=== PATIENT | male | born 1930 | race Caucasian/White ===

== ENCOUNTER 2017-03-11 14:02 | Inpatient (IN) | payer BC ==
[2017-03-11 15:03] VITALS: BMI 27.9
--- NOTE | 2017-03-11 15:13 | PDOC ---
History of Present Illness - General History Source: Patient, Old Records Exam Limitations: No Limitations - History of Present Illness Initial Comments: 03/11/17 15:34 The patient is a 86 year old male presenting with his sister, with a significant past medical history of HTN and HLD, who presents to the emergency department with left upper extremity erythema for the past 4-5 days. He states that moving his arm is uncomfortable but is able to have full range of motion. He reports that he does garden but did not notice anything on his shoulder and did not feel any bug bites. He notes that he feels as if the erythematous area has been improving. The patient denies chest pain, shortness of breath, headache and dizziness. Denies fever, chills, nausea, vomit, diarrhea and constipation. Allergies: None Past surgical history: Abdominal surgery Social history: Alcohol use. No tobacco or drug use reported PMD - Dr. Nasir De Leon <Carlos Enrique Landin - Last Filed: 03/11/17 15:31> <Aristides Dumont - Last Filed: 03/11/17 17:10> - General Chief Complaint: Redness To Affected Area Stated Complaint: RASH Time Seen by Provider: 03/11/17 15:11 Past History <Carlos Enrique Landin - Last Filed: 03/11/17 15:31> - Past Medical History Anemia: No Asthma: No Cancer: No Cardiac Disorders: No CVA: No COPD: No CHF: No Dementia: No Diabetes: No GI Disorders: No Disorders: No HTN: Yes Hypercholesterolemia: Yes Liver Disease: No Seizures: No Thyroid Disease: No - Surgical History Abdominal Surgery: Yes (ABD) Appendectomy: No Cardiac Surgery: No Cholecystectomy: No Lung Surgery: No Neurologic Surgery: No Orthopedic Surgery: No - Psycho/Social/Smoking Cessation Hx Anxiety: No Suicidal Ideation: No Smoking History: Never smoked Have you smoked in the past 12 months: No Information on smoking cessation initiated: No Hx Alcohol Use: No Drug/Substance Use Hx: No Substance Use Type: Alcohol Hx Substance Use Treatment: No <Aristides Dumont - Last Filed: 03/11/17 17:10> - Past Medical History Allergies/Adverse Reactions: Allergies Allergy/AdvReac Type Severity Reaction Status Date / Time No Known Drug Allergies Allergy Verified 03/11/17 14:16 Home Medications: Ambulatory Orders Lisinopril [Prinivil -] 10 mg PO DAILY 01/03/15 Simvastatin [Zocor -] 20 mg PO HS 01/03/15 Review of Systems - Review of Systems Constitutional: Yes: Chills. No: Fever Respiratory: No: Cough, Shortness of Breath Cardiac (ROS): No: Chest Pain ABD/GI: No: Diarrhea, Vomiting Musculoskeletal: Yes: See HPI Integumentary: Yes: See HPI All Other Systems: Reviewed and Negative <Aristides Dumont - Last Filed: 03/11/17 17:10> *Physical Exam - Vital Signs Last Vital Signs Temp Pulse Resp BP Pulse Ox 99.0 F 64 18 112/53 96 03/11/17 14:17 03/11/17 14:17 03/11/17 14:17 03/11/17 14:17 03/11/17 14:17 - Physical Exam Comments: 03/11/17 15:31 GENERAL: The patient is awake, alert, and fully oriented, in no acute distress. HEAD: Normal with no signs of trauma. EYES: Pupils equal, round and reactive to light, extraocular movements intact, sclera anicteric, conjunctiva clear with no pallor. ENT: Ears normal, nares patent, oropharynx clear without exudates. Moist mucous membranes. NECK: Normal range of motion, supple without lymphadenopathy, JVD, or masses. LUNGS: Breath sounds equal, clear to auscultation bilaterally. No wheeze/ crackles. HEART: (+) Regular bradycardia, normal S1 and S2 without murmur or rub. ABDOMEN: Soft/nontender/nondistended. BS wnl. No guarding or rebound. No palpable masses. No hepatosplenomegaly. EXTREMITIES: Normal range of motion, no edema. No clubbing or cyanosis. No cords , erythema, or tenderness. NEUROLOGICAL: Cranial nerves II through XII grossly intact. Normal speech, normal gait. PSYCH: Normal mood, normal affect. SKIN: (+) Central indurated area in the central area of the left shoulder, slight target lesion with peripheral area of pallor and blanching erythema overall 10 cm in diameter, no joint effusion, neurovascularly intact, full range of motion <Carlos Enrique Landin - Last Filed: 03/11/17 15:31> - Vital Signs Last Vital Signs Temp Pulse Resp BP Pulse Ox 99.0 F 64 18 112/53 96 03/11/17 14:17 03/11/17 14:17 03/11/17 14:17 03/11/17 14:17 03/11/17 14:17 <Aristides Dumont - Last Filed: 03/11/17 17:10> Medical Decision Making - Critical Care Time Total Critical Care Time (minutes): 45 Critical Care Statement: The care of this patient involved high complexity decision making to prevent further life threatening deterioration of the patient 's condition and/or to evalute & treat vital organ system(s) failure or risk of failure. - Medical Decision Making 03/11/17 15:58 Patient seen and evaluated with the nurse practitioner. I agree with the overall evaluation, assessment, and management with the following summary of visit: 86y/o M HTN and high cholesterol p/w rash and discomfort to L shoulder. Sxs for about 1 week, unclear as patient was not closely monitoring. ? insect bite, increasing discomfort to the L shoulder but maintains FROM. increasing redness so presents for evaluation. chills but no fever. no montoya/confusion. VS as noted, bradycardic L shoulder with target rash and central induration, no FB/insect noted, no pus/ bleeding. No axillary LAD, no joint effusion and FROM nvi regular malika on exam, otherwise normal 86-year-old male with erythema migrans rash to left shoulder, possible centrals superimposed cellulitis. Possible Lyme. Given the bradycardia, could be concerning for cardiac involvement. No evidence of neurological involvement. No evidence of septic joint. Sepsis protocol initiated Lyme titers sent EKG was performed and shows bradycardia with block, ? variable 1st degree versus Wenchebach given varying WA intervals. 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 Will treat with recommended Ceftriaxone 2g IV and will need cardiac monitoring. Cardiology Dr. Uribe consulted. 03/11/17 17:09 D/W Dr. Soares, will see pt. Agrees with tele admission. Accepted for inpatient telemetry by Dr. Pike, admitting for Dr. De Leon. Labs pending, receiving abx. Signout given to oncoming ED physician to f/u the labs, reassess the patient, and proceed with admission. <Aristides Dumont - Last Filed: 03/11/17 17:10> *DC/Admit/Observation/Transfer - Attestations Scribe Attestion: 03/11/17 15:31 Documentation prepared by Carlos Enrique Landin, acting as medical equipment technician for Aristides Dumont MD <Carlos Enrique Landin - Last Filed: 03/11/17 15:31> - Discharge Dispostion Admit: Yes <Aristides Dumont - Last Filed: 03/11/17 17:10> Diagnosis at time of Disposition: Erythema migrans (Lyme disease), Mobitz (type) I (Wenckebach's) atrioventricular block, Lyme carditis - Discharge Dispostion Condition at time of disposition: Fair - Referrals Referrals: Nasir De Leon MD [Primary Care Provider] -
[2017-03-11] MEDS ORDERED: DOXYCYCLINE INJECTION 100 MG in DEXTROSE 5%-WATER - 100 ML IVPB ONE (15:31)
[2017-03-11] MEDS ORDERED: CEFTRIAXONE 2 GM in DEXTROSE 5%-WATER - 100 ML IVPB ONE (16:11)
[2017-03-11] MEDS ORDERED: ACETAMINOPHEN 325 MG TABLET (FP) PO PRN (17:10)
[2017-03-11 17:21] LABS: BASOPHIL 0.7 % (0-2.0); EOSINOPHIL 0.7 % (0-4.5); MCH 32.1 pg (25.7-33.7); MCHC 33.4 g/dl (32.0-35.9); MEAN CELL VOLUME 96.1 fl (80-96); MEAN PLT VOLUME 10.5 fl (7.5-11.1); NEUTROPHILS 63.6 % (42.8-82.8); PLATELET COUNT 100 K/MM3 (134-434); RDW 12.6 % (11.9-15.9)
[2017-03-11 17:38] LABS: INR 1.14 (0.82-1.09); PROTHROMBIN TIME (PATIENT) 12.6 SEC (9.98-11.88)
[2017-03-11 17:41] LABS: ACTIVATED PTT 28.5 SECONDS (26.9-34.4)
[2017-03-11 18:07] LABS: ALBUMIN 3.4 g/dl (3.4-5.0); ANION GAP 9 (8-16); CALCIUM 8.3 mg/dL (8.5-10.1); CO2 25 mmol/L (21-32); GLUCOSE,RANDOM 98 mg/dL (74-106)
[2017-03-11 18:13] LABS: ALK PHOS 56 U/L (45-117); BILIRUBIN,TOTAL 0.7 mg/dL (0.2-1.0); CREATININE 0.8 mg/dL (0.7-1.3); SGOT/AST 74 U/L (15-37); SGPT/ALT 65 U/L (12-78); TOT PROT 6.6 g/dl (6.4-8.2); TROPONIN I < 0.02 ng/ml (0.00-0.05)
[2017-03-11] MEDS: ATORVASTATIN CA 10 MG TABLET (FP) PO SCH (22:59)
--- NOTE | 2017-03-12 01:56 | CON.CARD ---
Consult Consult Specialty:: cardiology Reason for Consultation:: bradycardia - History of Present Illness History of Present Illness: The patient is an 86 year old male presenting with his sister, with a significant past medical history of HTN and HLD, who presents to the emergency department with left upper extremity erythema for the past 4-5 days. He states that moving his arm is uncomfortable but is able to have full range of motion. He reports that he does garden but did not notice anything on his shoulder and did not feel any bug bites. He notes that he feels as if the erythematous area has been improving. The patient denies chest pain, shortness of breath, headache and dizziness. Denies fever, chills, nausea, vomit, diarrhea and constipation. Allergies: None Past surgical history: Abdominal surgery Social history: Alcohol use. No tobacco or drug use reported PMD - Dr. Nasir De Leon - History Source History Provided By: Medical Record Limitations to Obtaining History: No Limitations - Past Medical History Cardio/Vascular: Yes: HTN, Hyperlipdemia - Past Surgical History Past Surgical History: Yes: Hernia Repair (left inquinal: 2014) - Alcohol/Substance Use Hx Alcohol Use: No - Smoking History Smoking history: Never smoked Have you smoked in the past 12 months: No Home Medications - Allergies Allergies/Adverse Reactions: Allergies Allergy/AdvReac Type Severity Reaction Status Date / Time No Known Drug Allergies Allergy Verified 03/11/17 14:16 - Home Medications Home Medications: Ambulatory Orders Lisinopril [Prinivil -] 10 mg PO DAILY 01/03/15 Simvastatin [Zocor -] 20 mg PO HS 01/03/15 - Risk Factors Known Risk Factors: Yes: Age, Hypercholesterolemia, Hypertension Vital Signs: Vital Signs Temperature 99.0 F 03/11/17 18:48 Pulse Rate 42 L 03/11/17 18:48 Respiratory Rate 20 03/11/17 18:48 Blood Pressure 103/49 03/11/17 18:48 O2 Sat by Pulse Oximetry (%) 98 03/11/17 21:00 - Other Data Labs, Other Data: INR, PTT INR 1.14 (0.82-1.09) 03/11/17 16:46 Imaging - Results Chest X-ray: Image Reviewed EKG: Image Reviewed (Marked sinus bradycardia) Problem List - Problems (1) Erythema migrans (Lyme disease) Code(s): A69.20 - LYME DISEASE, UNSPECIFIED (2) Lyme carditis Code(s): A69.29 - OTHER CONDITIONS ASSOCIATED WITH LYME DISEASE I51.89 - OTHER ILL-DEFINED HEART DISEASES (3) Mobitz (type) I (Wenckebach's) atrioventricular block Assessment/Plan: Suspect Lyme disease (in garden recently; now with erythema migrans rash) as cause of marked bradycardia, 2nd degree AV block Mobitz Type I. Started on Ceftriazone empirically. R/o thyroid disease: f/u TFTs. TNI < 0.02; f/u serially. Not on home AV conduction blockers. Pt denies dizziness/syncope/chest pain/dyspnea/LE edema. F/u on telemetry; serial EKGs. ECHO for LVEF, wall motion, valve status. Code(s): I44.1 - ATRIOVENTRICULAR BLOCK, SECOND DEGREE (4) HTN (hypertension) Assessment/Plan: on lisinopril. ECHO for LVEF, chamber sizes; wall thickness/motion; valve status. Code(s): I10 - ESSENTIAL (PRIMARY) HYPERTENSION (5) Hyperlipidemia Assessment/Plan: on statin; f/u lipids; mildly elevated AST. Code(s): E78.5 - HYPERLIPIDEMIA, UNSPECIFIED
[2017-03-12 07:29] LABS: MCH 32.1 pg (25.7-33.7); MCHC 33.8 g/dl (32.0-35.9); MEAN PLT VOLUME 9.5 fl (7.5-11.1); PLATELET COUNT 87 K/MM3 (134-434); RDW 12.7 % (11.9-15.9); WHITE BLOOD COUNT 5.3 K/mm3 (4.0-10.0)
[2017-03-12 08:25] LABS: ALBUMIN 2.9 g/dl (3.4-5.0); ALK PHOS 47 U/L (45-117); ANION GAP 8 (8-16); BILIRUBIN,TOTAL 0.6 mg/dL (0.2-1.0); CO2 27 mmol/L (21-32); CREATININE 0.7 mg/dL (0.7-1.3); GLUCOSE,RANDOM 116 mg/dL (74-106); SGOT/AST 52 U/L (15-37); SGPT/ALT 52 U/L (12-78); TOT PROT 5.7 g/dl (6.4-8.2)
[2017-03-12 09:46] LABS: THYROID STIMULATING HORMONE 1.47 uIU/ml (0.358-3.74)
[2017-03-12] MEDS ORDERED: CEFTRIAXONE 2G/100 ML IVPB SCH (10:00)
[2017-03-12] MEDS ORDERED: LISINOPRIL 10 MG TABLET (FP) PO SCH (10:00)
--- NOTE | 2017-03-12 10:06 | HP ---
Admitting History and Physical - Primary Care Physician PCP: Nasir De Leon (\) - Admission Chief Complaint: rash and heart block History of Present Illness: 86 yrs old male came to ER for rash on left shoulder-- he told his sister that he wasn't feeling well yesterday and she came over and discovered this rash on left shoulder No fever or chills but says that he has been feeling fatigued for the last few days. Finds it difficult to do routine activities.Has been feeling dizzy in the mornings for several months now. He attributes this taking Lisinopril. He denies seeing deer ticks, denies deers near his home. He gardens , went to the nearby park recently No chest pain or SOB Spoke with Dr De Leon his PCP-- had done a physical on the pt last month and EKG - Genoveva type 1 - HR 48 Last year EKG- 50 , he has been progressively getting bradycardic. He did a holter on the pt this year last month and lowest HR was 36. History Source: Patient Limitations to Obtaining History: No Limitations - Past Medical History Cardiovascular: Yes: HTN, Hyperlipdemia - Past Surgical History Past Surgical History: Yes: Hernia Repair (left inquinal: 2014) - Smoking History Smoking history: Never smoked Have you smoked in the past 12 months: No - Alcohol/Substance Use Hx Alcohol Use: No Home Medications - Allergies Allergies/Adverse Reactions: Allergies Allergy/AdvReac Type Severity Reaction Status Date / Time No Known Drug Allergies Allergy Verified 03/11/17 14:16 - Home Medications Home Medications: Ambulatory Orders Lisinopril [Prinivil -] 10 mg PO DAILY 01/03/15 Simvastatin [Zocor -] 20 mg PO HS 01/03/15 Review of Systems - Review of Systems Constitutional: reports: Weakness. denies: Chills, Fever, Loss of Appetite Cardiovascular: denies: Chest Pain, Edema, Palpitations, Shortness of Breath Integumentary: reports: Rash Physical Examination Vital Signs: Vital Signs Temperature 98.8 F 03/12/17 02:08 Pulse Rate 60 03/12/17 02:08 Respiratory Rate 20 03/12/17 02:08 Blood Pressure 104/59 03/12/17 02:08 O2 Sat by Pulse Oximetry (%) 98 03/11/17 21:00 Constitutional: Yes: No Distress, Calm Cardiovascular: Yes: Regular Rate and Rhythm Respiratory: Yes: CTA Bilaterally Gastrointestinal: Yes: Normal Bowel Sounds, Soft. No: Distention, Tenderness Edema: No Integumentary: Yes: Rash (left shoulder-- erythema migrans) Neurological: Yes: Alert, Oriented Labs: CBC, BMP 03/12/17 05:45 03/12/17 05:45 Imaging - Results Chest X-ray: Image Reviewed EKG: Image Reviewed (1 degree AV block, Mobitz 1) Problem List - Problems (1) Erythema migrans (Lyme disease) Code(s): A69.20 - LYME DISEASE, UNSPECIFIED (2) HTN (hypertension) Code(s): I10 - ESSENTIAL (PRIMARY) HYPERTENSION (3) Lyme carditis Code(s): A69.29 - OTHER CONDITIONS ASSOCIATED WITH LYME DISEASE I51.89 - OTHER ILL-DEFINED HEART DISEASES (4) Mobitz (type) I (Wenckebach's) atrioventricular block Code(s): I44.1 - ATRIOVENTRICULAR BLOCK, SECOND DEGREE Assessment/Plan PLAN On IV Ceftriaxone Spoke with PMD and ID Add Doxycycline per ID Labs pending regarding Lyme continue with home meds Pt has been having bradycardia for about 2 years now Platelets low -- check Ehrlichia DVT prophylaxis -- SCD
--- NOTE | 2017-03-12 10:25 | PN ---
Progress Note, Physician History of Present Illness: The patient is an 86 year old male presenting with his sister, with a significant past medical history of HTN and HLD, who presents to the emergency department with left upper extremity erythema for the past 4-5 days. He states that moving his arm is uncomfortable but is able to have full range of motion. He reports that he does garden but did not notice anything on his shoulder and did not feel any bug bites. He notes that he feels as if the erythematous area has been improving. The patient denies chest pain, shortness of breath, headache and dizziness. Denies fever, chills, nausea, vomit, diarrhea and constipation. Allergies: None Past surgical history: Abdominal surgery Social history: Alcohol use. No tobacco or drug use reported PMD - Dr. Nasir De Leon - Current Medication List Current Medications: Active Medications Acetaminophen (Tylenol -) 650 mg PO Q6H PRN PRN Reason: FEVER Atorvastatin Calcium (Lipitor -) 10 mg PO HS [facility] Last Admin: 03/11/17 22:59 Dose: 10 mg Ceftriaxone Sodium (Rocephin 2gm Ivpb (Pre-Docked)) 100 mls @ 200 mls/hr IVPB DAILY [facility] Last Admin: 03/12/17 09:31 Dose: 200 mls/hr Lisinopril (Prinivil) 10 mg PO DAILY [facility] Last Admin: 03/12/17 09:32 Dose: Not Given - Objective Vital Signs: Vital Signs Temperature 98.8 F 03/12/17 02:08 Pulse Rate 60 03/12/17 02:08 Respiratory Rate 20 03/12/17 02:08 Blood Pressure 104/59 03/12/17 02:08 O2 Sat by Pulse Oximetry (%) 98 03/11/17 21:00 Eyes: Yes: WNL, Conjunctiva Clear, EOM Intact HENT: Yes: WNL, Atraumatic, Normocephalic Neck: Yes: WNL, Supple, Trachea Midline Cardiovascular: Yes: WNL, Regular Rate and Rhythm Respiratory: Yes: WNL, Regular, CTA Bilaterally Gastrointestinal: Yes: WNL, Normal Bowel Sounds Genitourinary: Yes: WNL Musculoskeletal: Yes: WNL Extremities: Yes: WNL Edema: No Integumentary: Yes: WNL Neurological: Yes: WNL, Alert, Oriented ...Motor Strength: WNL Psychiatric: Yes: WNL Labs: CBC, BMP 03/12/17 05:45 03/12/17 05:45 INR, PTT INR 1.14 (0.82-1.09) 03/11/17 16:46 Assessment/Plan - Problems (1) Erythema migrans (Lyme disease) Code(s): A69.20 - LYME DISEASE, UNSPECIFIED (2) Lyme carditis Code(s): A69.29 - OTHER CONDITIONS ASSOCIATED WITH LYME DISEASE I51.89 - OTHER ILL-DEFINED HEART DISEASES (3) Mobitz (type) I (Wenckebach's) atrioventricular block Assessment/Plan: Suspect Lyme disease (in garden recently; now with erythema migrans rash) as cause of marked bradycardia, 2nd degree AV block Mobitz Type I. Started on Ceftriazone empirically. R/o thyroid disease: f/u TFTs. TNI < 0.02; f/u serially. Not on home AV conduction blockers. Pt denies dizziness/syncope/chest pain/dyspnea/LE edema. F/u on telemetry; serial EKGs. ECHO for LVEF, wall motion, valve status. Code(s): I44.1 - ATRIOVENTRICULAR BLOCK, SECOND DEGREE (4) HTN (hypertension) Assessment/Plan: on lisinopril. ECHO for LVEF, chamber sizes; wall thickness/motion; valve status. Code(s): I10 - ESSENTIAL (PRIMARY) HYPERTENSION (5) Hyperlipidemia Assessment/Plan: on statin; f/u lipids; mildly elevated AST. Code(s): E78.5 - HYPERLIPIDEMIA, UNSPECIFIED
[2017-03-12] MEDS: D5W IVPB SCH (11:15)
[2017-03-12] MEDS: CEFTRIAXONE 2 GM/100 ML IVPB SCH (11:15)
--- NOTE | 2017-03-12 11:19 | PN ---
Progress Note (short form) - Note Progress Note: ID consult dictated imp/reccd- 86 year old man admitted with rash on shoulder, his sister saw the rash yesterday and tole him he had a target lesion he was noted to have be bradycardic and had an ekg that showed mobitz type ! heart block he was started on ceftriaxone and admitted to telemetry no fevers lives in a house in [place] does gardening denies tick bites no travel no pets erythema migrans c/w lyme disease r/o lyme carditis r/o coinfection with anaplasma,babesia, ehrlichia- serology ordered- patient with thrombocytopenia rocephin/doxy for now with plans for po doxy when ready for discharge to complete 28 days d/w PMD Problem List - Problems (1) Erythema migrans (Lyme disease) Code(s): A69.20 - LYME DISEASE, UNSPECIFIED (2) Lyme carditis Code(s): A69.29 - OTHER CONDITIONS ASSOCIATED WITH LYME DISEASE I51.89 - OTHER ILL-DEFINED HEART DISEASES (3) Thrombocytopenia Code(s): D69.6 - THROMBOCYTOPENIA, UNSPECIFIED
--- NOTE | 2017-03-12 12:01 | CONS ---
DATE OF CONSULTATION: DATE OF DICTATION: 03/12/2017 INFECTIOUS DISEASE CONSULTATION REQUESTING PHYSICIAN: Kena Negrete MD HISTORY OF PRESENT ILLNESS: This is an 86-year-old man. He lives alone in a house here in [place]. He presented to the emergency room yesterday with erythema and a rash on his left shoulder. He says his shoulder was itchy. He showed the rash to his sister who told him he had a target lesion and that he should get evaluated and he came to the emergency room. He denies any fevers and chills. He denies any tick bites. He denies any travel. He has no pets. He does live here in [place]. He gardens and has a nice vegetable garden. He does report fatigue. He has had no fevers or chills. He reports he has been dizzy in the morning. In the emergency room he was noted to be bradycardic. He had an EKG done and was found to have a first-degree A-V block Mobitz type 1. I am asked to see him for further management. PAST MEDICAL HISTORY: Notable for hypertension and hyperlipidemia. PAST SURGICAL HISTORY: Notable for a left inguinal hernia repair in 2014. FAMILY HISTORY: Noncontributory. SOCIAL HISTORY: There is no history of any substance use. He lives alone. ALLERGIES: He has no known drug allergies. MEDICATIONS: His medications as an outpatient include Prinivil and Zocor. REVIEW OF SYSTEMS: He denies fevers, chills, nausea, vomiting, diarrhea, or dysuria. He has not noted rash elsewhere on his body. He does not have any swollen joints. PHYSICAL EXAMINATION: Vital Signs: T-max of 99 and currently 98, pulse of 55, blood pressure of 115/62, and respiratory rate of 18. HEENT: He is normocephalic. His eyes are anicteric. There are no conjunctival hemorrhages. Neck: Supple. Lungs: Clear to auscultation. Heart: Regular rate and rhythm. Abdomen: Soft and nontender. Extremities: Without edema. He has no joint swelling. He has on his left shoulder a large target lesion, which is warm to touch. LABORATORY DATA: Notable for a white count of 5.3, hemoglobin of 12.8, and platelets yesterday were 100,000 and this morning is 87,000. Sedimentation rate is 30. INR is 1. AST of 52 and ALT of 52 with an alkaline phosphatase of 47. His CRP is 7.8. His Lyme serology is pending. Chest x-ray was done in the emergency room and shows minimal blunting of the left costophrenic angle with some mild atelectasis. SUMMARY: This is an 86-year-old man with erythema migrans consistent with Lyme disease. Rule out Lyme carditis given the Mobitz type 1 heart block. Rule out co-infection with anaplasma, Babesia, and ehrlichia. The patient does have thrombocytopenia, which makes it possible that he has co-infection with anaplasma. Would use ceftriaxone and doxycycline at this time. Would plan for oral doxycycline when ready for discharge to complete 28 days. The case was discussed at length with his PMD, Dr. Negrete. CORINNA DANIELSON M.D. [id number]
[2017-03-12] MEDS: DOXYCYCLINE INJECTION 100 MG in DEXTROSE 5%-WATER - 100 ML IVPB SCH ×2 (12:59→22:47)
--- NOTE | 2017-03-12 13:37 | EKG ---
Test Reason : Blood Pressure : / mmHG Vent. Rate : 046 BPM Atrial Rate : 046 BPM P-R Int : 330 ms QRS Dur : 088 ms QT Int : 448 ms P-R-T Axes : 073 005 019 degrees QTc Int : 392 ms SINUS BRADYCARDIA WITH MOBITZ I (WENCKEBACH) BLOCK OTHERWISE NORMAL ECG WHEN COMPARED WITH ECG OF 10-SEP-2002 09:14, PREMATURE ATRIAL COMPLEXES ARE NOW PRESENT VENT. RATE HAS DECREASED BY 23 BPM Confirmed by PILAR PRABHAKAR MD ([id number]) on 03/12/2017 1:36:31 PM Referred By: Confirmed By:PILAR PRABHAKAR MD
[2017-03-12] MEDS ORDERED: PT OWN MED DRAWER 7, Y5N ONE (22:46)
[2017-03-12] MEDS: ATORVASTATIN CA 10 MG TABLET (FP) PO SCH (22:47)
[2017-03-13 07:24] LABS: BASOPHIL 0.3 % (0-2.0); EOSINOPHIL 3.4 % (0-4.5); MCH 32.7 pg (25.7-33.7); MCHC 33.8 g/dl (32.0-35.9); MEAN CELL VOLUME 96.6 fl (80-96); MEAN PLT VOLUME 9.7 fl (7.5-11.1); NEUTROPHILS 54.8 % (42.8-82.8); PLATELET COUNT 100 K/MM3 (134-434); RDW 12.4 % (11.9-15.9); WHITE BLOOD COUNT 4.8 K/mm3 (4.0-10.0)
[2017-03-13] MEDS: DOXYCYCLINE INJECTION 100 MG in DEXTROSE 5%-WATER - 100 ML IVPB SCH (09:09)
[2017-03-13] MEDS: D5W IVPB SCH (09:09)
[2017-03-13] MEDS: CEFTRIAXONE 2 GM/100 ML IVPB SCH (09:09)
--- NOTE | 2017-03-13 10:53 | PN ---
Progress Note, Physician Chief Complaint: was diaphoretic this AM not dizzy has h/o dizziness in the past No chest pain no pain or pruritus - left shoulder rash - Current Medication List Current Medications: Active Medications Acetaminophen (Tylenol -) 650 mg PO Q6H PRN PRN Reason: FEVER Atorvastatin Calcium (Lipitor -) 10 mg PO HS [facility] Last Admin: 03/12/17 22:47 Dose: 10 mg Ceftriaxone Sodium (Rocephin 2gm Ivpb (Pre-Docked)) 100 mls @ 200 mls/hr IVPB DAILY [facility] Last Admin: 03/13/17 09:09 Dose: 200 mls/hr Doxycycline Hyclate 100 mg/ (Dextrose) 100 mls @ 100 mls/hr IVPB BID [facility] Last Admin: 03/13/17 09:09 Dose: 100 mls/hr - Objective Vital Signs: Vital Signs Temperature 98 F 03/13/17 06:00 Pulse Rate 46 L 03/13/17 06:00 Respiratory Rate 20 03/13/17 06:00 Blood Pressure 126/64 03/13/17 06:00 O2 Sat by Pulse Oximetry (%) 99 03/12/17 21:00 Constitutional: Yes: No Distress, Calm Cardiovascular: Yes: Regular Rate and Rhythm, Bradycardia Respiratory: Yes: CTA Bilaterally Gastrointestinal: Yes: Normal Bowel Sounds, Soft. No: Distention, Tenderness Extremities: Yes: Other (left shoulder bull's eye rash-- disappearing) Edema: No Psychiatric: Yes: Alert, Oriented Labs: CBC, BMP 03/13/17 06:00 03/12/17 05:45 INR, PTT INR 1.14 (0.82-1.09) 03/11/17 16:46 Problem List - Problems (1) Erythema migrans (Lyme disease) Code(s): A69.20 - LYME DISEASE, UNSPECIFIED (2) HTN (hypertension) Code(s): I10 - ESSENTIAL (PRIMARY) HYPERTENSION (3) Lyme carditis Code(s): A69.29 - OTHER CONDITIONS ASSOCIATED WITH LYME DISEASE I51.89 - OTHER ILL-DEFINED HEART DISEASES (4) Mobitz (type) I (Wenckebach's) atrioventricular block Code(s): I44.1 - ATRIOVENTRICULAR BLOCK, SECOND DEGREE Assessment/Plan PLAN On IV Ceftriaxone and PO Doxycycline per ID Labs pending regarding Lyme, Ehrlichia , Babesia continue with home meds Pt has been having bradycardia for about 2 years now Platelets increasing will get Holter results from PMD spoke with Photograph Editor today-- consult configuration specialist for possible PPM DVT prophylaxis -- SCD
--- NOTE | 2017-03-13 12:57 | PN ---
Progress Note, Physician Chief Complaint: ID Ceftriaxone doxycycline Feels well - Current Medication List Current Medications: Active Medications Acetaminophen (Tylenol -) 650 mg PO Q6H PRN PRN Reason: FEVER Atorvastatin Calcium (Lipitor -) 10 mg PO HS [facility] Last Admin: 03/12/17 22:47 Dose: 10 mg Ceftriaxone Sodium (Rocephin 2gm Ivpb (Pre-Docked)) 100 mls @ 200 mls/hr IVPB DAILY [facility] Last Admin: 03/13/17 09:09 Dose: 200 mls/hr Doxycycline Hyclate 100 mg/ (Dextrose) 100 mls @ 100 mls/hr IVPB BID [facility] Last Admin: 03/13/17 09:09 Dose: 100 mls/hr - Objective Vital Signs: Vital Signs Temperature 99 F 03/13/17 10:00 Pulse Rate 56 L 03/13/17 10:00 Respiratory Rate 18 03/13/17 10:00 Blood Pressure 129/74 03/13/17 10:00 O2 Sat by Pulse Oximetry (%) 98 03/13/17 09:00 Constitutional: Yes: Well Nourished, No Distress Neck: Yes: WNL, Supple Cardiovascular: Yes: Regular Rate and Rhythm, Rub, S1, S2 Respiratory: Yes: WNL, CTA Bilaterally Gastrointestinal: Yes: WNL, Normal Bowel Sounds, Soft. No: Tenderness, Tenderness, Rebound Wound/Incision: Yes: Other (Em rash left shoulder) Labs: CBC, BMP 03/13/17 06:00 03/12/17 05:45 INR, PTT INR 1.14 (0.82-1.09) 03/11/17 16:46 Assessment/Plan Microbiology 03/13/17 10:01 Blood - Peripheral Venous Blood Parasites Smear (FELIPE) - Final 03/12/17 11:45 Serum HGE Ehrlichia (PCR) - Preliminary 03/12/17 11:45 Serum Ehrlichia Serology - Preliminary 03/11/17 16:46 Blood - Peripheral Venous Blood Culture - Preliminary NO GROWTH OBTAINED AFTER 24 HOURS, INCUBATION TO CONTINUE FOR 4 DAYS. Laboratory Tests 03/11/17 03/12/17 03/12/17 16:46 05:45 11:45 WBC Hgb Hct Plt Count ALT 52 A. phagocytophilum DNA Pending Babesia microti DNA PCR Lyme Disease IgG/IgM Pending 03/12/17 03/13/17 11:45 06:00 WBC 4.8 Hgb 13.2 Hct 39.0 Plt Count 100 L ALT A. phagocytophilum DNA Babesia microti DNA PCR Pending Lyme Disease IgG/IgM Assessment Borrelia infection rash Possible coinfection HGA Lyme heart block considered Plan Rash improving Continue antibiotics Blade MATT
--- NOTE | 2017-03-13 14:25 | CON.CARD ---
Consult Consult Specialty:: EPS Referred by:: Dr. Uribe Reason for Consultation:: Mobitz I - History of Present Illness Chief Complaint: Bradycardia History of Present Illness: Mr. Mccloud is a pleasant 86 year old male with a pmh of hypertension, inc chol , bradycardia who presented to the ER with complaints of erythema on his LUE. He was noted to be bradycardic with mobitz I heart block. He was noted to have complaints of dizziness and consultation was requested for possible pacemaker placement. The patient was seen and evaluated. He denies any chest pain, dyspnea, palpitations, near or true syncope at this time. He denies any significant dizziness in the past but states that he has had dyspnea when he "over-exerts" himself. He reportedly had a holter monitor done a few years ago that demonstrated bradycardia with a heart rate in the 30's but strips are not available for review at this time. TFT's are wnl. A lyme titer was sent but results are pending. - History Source History Provided By: Patient, Family Member - Past Medical History Cardio/Vascular: Yes: HTN, Hyperlipdemia - Past Surgical History Past Surgical History: Yes: Hernia Repair (left inquinal: 2014) - Alcohol/Substance Use Hx Alcohol Use: No - Smoking History Smoking history: Never smoked Have you smoked in the past 12 months: No Home Medications - Allergies Allergies/Adverse Reactions: Allergies Allergy/AdvReac Type Severity Reaction Status Date / Time No Known Drug Allergies Allergy Verified 03/11/17 14:16 - Home Medications Home Medications: Ambulatory Orders Lisinopril [Prinivil -] 10 mg PO DAILY 01/03/15 Simvastatin [Zocor -] 20 mg PO HS 01/03/15 Family Disease History - Family Disease History Family History: Unremarkable Review of Systems - Review of Systems Constitutional: denies: Chills, Fever HENT: denies: Epistaxis, Nasal Congestion Neck: denies: Tenderness Cardiovascular: denies: Chest Pain, Edema, Palpitations Respiratory: denies: Hemoptysis Gastrointestinal: denies: Abdominal Pain, Nausea, Vomiting Genitourinary: denies: Dysuria, Hematuria Musculoskeletal: denies: Muscle Weakness Neurological: reports: No Symptoms Vital Signs: Vital Signs Temperature 99 F 03/13/17 10:00 Pulse Rate 56 L 03/13/17 10:00 Respiratory Rate 18 03/13/17 10:00 Blood Pressure 129/74 03/13/17 10:00 O2 Sat by Pulse Oximetry (%) 98 03/13/17 09:00 Constitutional: Yes: Well Nourished Eyes: Yes: WNL HENT: Yes: WNL Neck: Yes: WNL Respiratory: Yes: WNL Gastrointestinal: Yes: WNL, Normal Bowel Sounds, Soft Cardiovascular: Yes: WNL, Regular Rate and Rhythm JVD: No Heart Sounds: Yes: S1, S2 Musculoskeletal: Yes: WNL Extremities: Yes: WNL Edema: No Peripheral Pulses WNL: Yes Integumentary: Yes: Rash Neurological: Yes: WNL ...Motor Strength: WNL Psychiatric: Yes: WNL, Alert, Oriented - Other Data Labs, Other Data: CBC, BMP 03/13/17 06:00 03/12/17 05:45 INR, PTT INR 1.14 (0.82-1.09) 03/11/17 16:46 Echo: Report Reviewed Ejection Fraction %: LVEF > or = 40 % Imaging - Results X-ray: Report Reviewed EKG: Image Reviewed Problem List - Problems (1) Mobitz (type) I (Wenckebach's) atrioventricular block Code(s): I44.1 - ATRIOVENTRICULAR BLOCK, SECOND DEGREE (2) HTN (hypertension) Code(s): I10 - ESSENTIAL (PRIMARY) HYPERTENSION Assessment/Plan 03/13/2017: JVD EPS: mobitz I heart block, asymptomatic. narrow complex rhythm. no evidence of high degree heart block on review of telemetry monitoring. normal LV systolic function with moderate . pt with dyspnea on exertion which may be secondary to chronotropic incompetence in this patient with long-standing bradycardia vs aortic valve disease vs other etiology such as deconditioning. reportedly had a holter a few years ago with rates in the 30's, not available for review at this time. denies near or true syncope. no indication for ppm therapy at this time. tft's wnl. - f/u labwork previously sent - keep k 4-4.5, mg 2-2.5 - can d/c telemetry - no indication for ppm therapy at this time - outpt stress test to evaluate for chronotropic incompetence. - review prior holter - consider outpt event monitor to evaluate for asymptomatic high degree av block - care as per cardiology, primary services Thank you for allowing me to participate in the care of this patient. Please call with any questions. Edgard Palomino MD [phone]
--- NOTE | 2017-03-13 15:22 | PN ---
Progress Note, Physician Chief Complaint: Pt A&Ox3; no chest pain, dizziness, or dyspnea. History of Present Illness: The patient is an 86 year old white male presenting with his sister, with a significant past medical history of HTN and HLD, who presents to the emergency department with left upper extremity erythema for the past 4-5 days. He states that moving his arm is uncomfortable but is able to have full range of motion. He reports that he does garden but did not notice anything on his shoulder and did not feel any bug bites. He notes that he feels as if the erythematous area has been improving. The patient denies chest pain, shortness of breath, headache and dizziness. Denies fever, chills, nausea, vomit, diarrhea and constipation. Allergies: None Past surgical history: Abdominal surgery Social history: Alcohol use. No tobacco or drug use reported PMD - Dr. Nasir De Leon - Current Medication List Current Medications: Active Medications Acetaminophen (Tylenol -) 650 mg PO Q6H PRN PRN Reason: FEVER Atorvastatin Calcium (Lipitor -) 10 mg PO HS [facility] Last Admin: 03/12/17 22:47 Dose: 10 mg Doxycycline Hyclate (Vibramycin -) 100 mg PO BID@1000,1800 [facility] Ceftriaxone Sodium (Rocephin 2gm Ivpb (Pre-Docked)) 100 mls @ 200 mls/hr IVPB DAILY [facility] Last Admin: 03/13/17 09:09 Dose: 200 mls/hr - Objective Vital Signs: Vital Signs Temperature 98.1 F 03/13/17 14:00 Pulse Rate 56 L 03/13/17 14:00 Respiratory Rate 20 03/13/17 14:00 Blood Pressure 119/60 03/13/17 14:00 O2 Sat by Pulse Oximetry (%) 98 03/13/17 09:00 Constitutional: Yes: No Distress Eyes: Yes: WNL HENT: Yes: WNL Neck: Yes: WNL Cardiovascular: Yes: S1 (varies in intensity), S2 Respiratory: Yes: WNL Gastrointestinal: Yes: Soft ...Rectal Exam: Yes: Deferred Genitourinary: Yes: WNL Breast(s): Yes: WNL Musculoskeletal: Yes: WNL Extremities: Yes: WNL Edema: No Peripheral Pulses WNL: Yes Integumentary: Yes: Erythema (left UE) Neurological: Yes: Alert, Oriented Psychiatric: Yes: WNL Labs: CBC, BMP 03/13/17 06:00 03/12/17 05:45 INR, PTT INR 1.14 (0.82-1.09) 03/11/17 16:46 Problem List - Problems (1) Erythema migrans (Lyme disease) Assessment/Plan: f/u with infectious disease MD Code(s): A69.20 - LYME DISEASE, UNSPECIFIED (2) Lyme carditis Code(s): A69.29 - OTHER CONDITIONS ASSOCIATED WITH LYME DISEASE I51.89 - OTHER ILL-DEFINED HEART DISEASES (3) Mobitz (type) I (Wenckebach's) atrioventricular block Assessment/Plan: TSH WNL. As discussed with Dr. Kena Pike, pt has been worked up in the past few years for similar EKG findings. A Holter reportedly showed HR in the 30s bpm at one point; it is uncertain,e.g., if this was while he was asleep. Pt denies chest pain, syncope, or marked dyspnea, but has exertional fatigue. As discussed with Dr. Palomino, EP, pt would benefit from a stress treadmill test for evaluation of HR/rhythm response to exercise and to r/o chronotropic incompetence. He is essentially asymptomatic, and has narrow-complex QRS pattern presently. F/u results of prior Holter; further long-term monitoring may be done as outpt if required by symptoms. Code(s): I44.1 - ATRIOVENTRICULAR BLOCK, SECOND DEGREE (4) HTN (hypertension) Assessment/Plan: on lisinopril. ECHO: normal LVEF; mildly dilated LA. Code(s): I10 - ESSENTIAL (PRIMARY) HYPERTENSION (5) Hyperlipidemia Assessment/Plan: on statin; f/u lipids; mildly elevated AST. Code(s): E78.5 - HYPERLIPIDEMIA, UNSPECIFIED
[2017-03-13] MEDS: DOXYCYCLINE HYCLATE 100 MG CAPSULE PO SCH (17:11)
[2017-03-13] MEDS: ATORVASTATIN CA 10 MG TABLET (FP) PO SCH (21:41)
[2017-03-14 08:08] LABS: MCH 32.3 pg (25.7-33.7); MCHC 33.9 g/dl (32.0-35.9); MEAN CELL VOLUME 95.3 fl (80-96); MEAN PLT VOLUME 9.8 fl (7.5-11.1); PLATELET COUNT 123 K/MM3 (134-434); RDW 12.4 % (11.9-15.9); WHITE BLOOD COUNT 4.6 K/mm3 (4.0-10.0)
--- NOTE | 2017-03-14 08:40 | PN ---
Progress Note (short form) - Note Progress Note: SUBJECTIVE: Patient seen and examined by me. Chart reviewed. Sitting in chair. Comfortable. Patient reports redness on the left arm getting better. OBJECTIVE: Vital Signs - 8 hr 03/14/17 03/14/17 03/14/17 02:27 06:00 08:45 Temperature 98.3 F 97.5 F L Pulse Rate 59 L 48 L Respiratory 20 20 20 Rate Blood Pressure 113/68 119/62 O2 Sat by Pulse 98 Oximetry (%) 03/14/17 08:52 Temperature 97.6 F Pulse Rate 60 Respiratory 20 Rate Blood Pressure 121/76 O2 Sat by Pulse Oximetry (%) Intake & Output 03/13/17 03/14/17 03/14/17 23:59 07:59 15:59 Intake Total 660 310 Balance 660 310 Intake: IV 10 10 SALINE 10 10 Oral 650 300 Other: Voiding Method Toilet Toilet Toilet # Unmeasured Voids Void 2 Bowel Movement Yes Yes Active Medications Acetaminophen (Tylenol -) 650 mg PO Q6H PRN PRN Reason: FEVER Atorvastatin Calcium (Lipitor -) 10 mg PO HS [facility] Last Admin: 03/13/17 21:41 Dose: 10 mg Doxycycline Hyclate (Vibramycin -) 100 mg PO BID@1000,1800 [facility] Last Admin: 03/14/17 10:11 Dose: 100 mg Ceftriaxone Sodium (Rocephin 2gm Ivpb (Pre-Docked)) 100 mls @ 200 mls/hr IVPB DAILY [facility] Last Admin: 03/14/17 10:11 Dose: 200 mls/hr CBC, BMP 03/14/17 06:00 03/12/17 05:45 Laboratory Results - last 24 hr 03/11/17 03/13/17 03/14/17 16:46 15:35 06:00 WBC 4.6 RBC 3.95 L Hgb 12.8 Hct 37.6 MCV 95.3 MCHC 33.9 RDW 12.4 Plt Count 123 L D MPV 9.8 Hemoglobin A1c % 5.7 Lyme Disease IgG/IgM < 0.91 Microbiology 03/11/17 16:46 Blood Culture - Preliminary Blood - Peripheral Venous NO GROWTH OBTAINED AFTER 48 HOURS, INCUBATION TO CONTINUE FOR 3 DAYS. 03/11/17 16:30 Blood Culture - Preliminary Blood - Peripheral Venous NO GROWTH OBTAINED AFTER 48 HOURS, INCUBATION TO CONTINUE FOR 3 DAYS. 03/13/17 10:01 Blood Parasites Smear (FELIPE) - Final Blood - Peripheral Venous PHYSICAL EXAMINATION: Constitutional: Yes: No Distress, Calm Cardiovascular: Yes: Regular Rate and Rhythm, Bradycardia Respiratory: Yes: CTA Bilaterally Gastrointestinal: Yes: Normal Bowel Sounds, Soft. No: Distention, Tenderness Extremities: Yes: Other (left shoulder bull's eye rash--better) Edema: No Psychiatric: Yes: Alert, Oriented ASSESSMENT & PLAN: - Stable. - Continue antibiotics. - Follow up Lyme titers. - Will follow. Documentation prepared by Milvia Fenton, acting as a medical lab technologist for Miri Evans MD
--- NOTE | 2017-03-14 09:45 | PN ---
Progress Note, Physician Chief Complaint: Pt OOB in chair; no chest pain or dyspnea. History of Present Illness: The patient is an 86 year old white male presenting with his sister, with a significant past medical history of HTN and HLD, who presents to the emergency department with left upper extremity erythema for the past 4-5 days. He states that moving his arm is uncomfortable but is able to have full range of motion. He reports that he does garden but did not notice anything on his shoulder and did not feel any bug bites. He notes that he feels as if the erythematous area has been improving. The patient denies chest pain, shortness of breath, headache and dizziness. Denies fever, chills, nausea, vomit, diarrhea and constipation. Allergies: None Past surgical history: Abdominal surgery Social history: Alcohol use. No tobacco or drug use reported PMD - Dr. Nasir De Leon - Current Medication List Current Medications: Active Medications Acetaminophen (Tylenol -) 650 mg PO Q6H PRN PRN Reason: FEVER Atorvastatin Calcium (Lipitor -) 10 mg PO HS [facility] Last Admin: 03/13/17 21:41 Dose: 10 mg Doxycycline Hyclate (Vibramycin -) 100 mg PO BID@1000,1800 [facility] Last Admin: 03/13/17 17:11 Dose: 100 mg Ceftriaxone Sodium (Rocephin 2gm Ivpb (Pre-Docked)) 100 mls @ 200 mls/hr IVPB DAILY [facility] Last Admin: 03/13/17 09:09 Dose: 200 mls/hr - Objective Vital Signs: Vital Signs Temperature 97.6 F 03/14/17 08:52 Pulse Rate 60 03/14/17 08:52 Respiratory Rate 20 03/14/17 08:52 Blood Pressure 121/76 03/14/17 08:52 O2 Sat by Pulse Oximetry (%) 98 03/14/17 08:45 Constitutional: Yes: No Distress Eyes: Yes: WNL HENT: Yes: WNL Neck: Yes: WNL Cardiovascular: Yes: Bradycardia, Pulse Irregular Respiratory: Yes: WNL Gastrointestinal: Yes: WNL ...Rectal Exam: Yes: Deferred Genitourinary: No: Anuria Breast(s): Yes: WNL Musculoskeletal: Yes: WNL Extremities: Yes: WNL Edema: No Peripheral Pulses WNL: Yes Integumentary: Yes: WNL Neurological: Yes: WNL ...Motor Strength: WNL Psychiatric: Yes: WNL Labs: CBC, BMP 03/14/17 06:00 03/12/17 05:45 INR, PTT INR 1.14 (0.82-1.09) 03/11/17 16:46 - ....Imaging Other: Image Reviewed (telemetry: 2nd degree Mobitz Type I; VR in 40s bpm at rest.) Problem List - Problems (1) Erythema migrans (Lyme disease) Assessment/Plan: discussed case with Dr. Card. Code(s): A69.20 - LYME DISEASE, UNSPECIFIED (2) Lyme carditis Code(s): A69.29 - OTHER CONDITIONS ASSOCIATED WITH LYME DISEASE I51.89 - OTHER ILL-DEFINED HEART DISEASES (3) Mobitz (type) I (Wenckebach's) atrioventricular block Assessment/Plan: TSH WNL. As discussed with Dr. Kena Pike, pt has been worked up in the past few years for similar EKG findings. A Holter reportedly showed HR in the 30s bpm at one point; it is uncertain,e.g., if this was while he was asleep. Pt denies chest pain, syncope, or marked dyspnea, but has exertional fatigue. As discussed with Dr. Palomino, EP, pt would benefit from a stress treadmill test for evaluation of HR/rhythm response to exercise and to r/o chronotropic incompetence.This will be done today. He is essentially asymptomatic, and has narrow-complex QRS pattern presently. F/u results of prior Holter; further long-term monitoring may be done as outpt if required by symptoms. Code(s): I44.1 - ATRIOVENTRICULAR BLOCK, SECOND DEGREE (4) HTN (hypertension) Assessment/Plan: on lisinopril. ECHO: normal LVEF; mildly dilated LA. Code(s): I10 - ESSENTIAL (PRIMARY) HYPERTENSION (5) Hyperlipidemia Assessment/Plan: on statin; f/u lipids; mildly elevated AST. Code(s): E78.5 - HYPERLIPIDEMIA, UNSPECIFIED
[2017-03-14] MEDS: D5W IVPB SCH (10:11)
[2017-03-14] MEDS: CEFTRIAXONE 2 GM/100 ML IVPB SCH (10:11)
[2017-03-14] MEDS: DOXYCYCLINE HYCLATE 100 MG CAPSULE PO SCH ×2 (10:11→17:13)
--- NOTE | 2017-03-14 11:33 | PN ---
Progress Note (short form) - Note Progress Note: for stress test today Vital Signs Period Temp Pulse Resp BP Sys/Saini Pulse Ox Last 24 Hr 97.5 F-98.3 F 48-60 20-20 113-160/60-76 98-98 cor-rrr lungs clear abd soft,nt rash on shoulder is fading CBC, BMP 03/14/17 06:00 03/12/17 05:45 Microbiology 03/11/17 16:46 Blood - Peripheral Venous Blood Culture - Preliminary NO GROWTH OBTAINED AFTER 48 HOURS, INCUBATION TO CONTINUE FOR 3 DAYS. 03/11/17 16:30 Blood - Peripheral Venous Blood Culture - Preliminary NO GROWTH OBTAINED AFTER 48 HOURS, INCUBATION TO CONTINUE FOR 3 DAYS. 03/13/17 10:01 Blood - Peripheral Venous Blood Parasites Smear (FELIPE) - Final 03/12/17 11:45 Serum HGE Ehrlichia (PCR) - Preliminary 03/12/17 11:45 Serum Ehrlichia Serology - Preliminary a/p erythema migrans c/w lyme disease r/o lyme carditis-d/w Dr Monroy who feels his bradycardia predated this episode (was present on holter last year)-making lyme carditis less likely r/o coinfection with anaplasma,babesia, ehrlichia- serology ordered- patient with thrombocytopenia-improving rocephin/doxy for now with plans for po doxy when ready for discharge to complete 28 day-would discharge when cleared by cardiology platelets are recovering and he is afebrile, can f/u serologies as outpatient Problem List - Problems (1) Erythema migrans (Lyme disease) Code(s): A69.20 - LYME DISEASE, UNSPECIFIED (2) Lyme carditis Code(s): A69.29 - OTHER CONDITIONS ASSOCIATED WITH LYME DISEASE I51.89 - OTHER ILL-DEFINED HEART DISEASES (3) Thrombocytopenia Code(s): D69.6 - THROMBOCYTOPENIA, UNSPECIFIED
--- NOTE | 2017-03-14 13:24 | TRE ---
Protocol Name : TRAVON Max Work Load (METS*10) : 68 Time In Exercise Phase : 00:07:37 Max. Systolic BP : 160 mmHg Max Diastolic BP : 70 mmHg Max Heart Rate : 110 BPM Max Predicted Heart Rate : 135 BPM Attending Physician : HAKAN LAZO Reason for Test : 2ND DEGREE MOBITZ 1 Stress Protocol : TRAVON Rest HR : 61 BPM PeakEx METs : 1.0 METS Recovery ECG Response (OLD) : Diagnosis : The patient completed 7:37 of a Manual Travon Protocol achieving 7METS. The resting heart rate of 50bpm jaci to a peak of 112bpm representing 82% of age predicted maximal heart rate. The resting blood pressure of 140/70 jaci to maximum of 160/70. The test was stopped due to shortness of breath. The resting ECG showed Sinus bradycardia with Type I, 2nd degree AV block (Wenkebach). [place] stress, several short self limited runs of NSVT (longest 3 beats) were noted. 1mm horizontal ST depressions in V4-V6 at peak stress. Conclusion: +/abnormal ETT as outlined above. Chronotropically competent, achieving 7 METS with 82% of age predicted maximal heart rate achieved. Confirmed by HAKAN LAZO MD ([id number]) on 03/14/2017 1:23:35 PM
[2017-03-14] MEDS: ATORVASTATIN CA 10 MG TABLET (FP) PO SCH (21:25)
[2017-03-15] MEDS ORDERED: PT OWN MED DRAWER 7, Y5N ONE (09:46)
[2017-03-15] MEDS: DOXYCYCLINE HYCLATE 100 MG CAPSULE PO SCH (09:54)
[2017-03-15 10:40] VITALS: BP 123/67; PULSE 57; TEMP 98
--- NOTE | 2017-03-15 12:56 | DS ---
Physical Examination Vital Signs: Vital Signs Temperature 98.0 F 03/15/17 10:00 Pulse Rate 57 L 03/15/17 10:00 Respiratory Rate 16 03/15/17 10:00 Blood Pressure 123/67 03/15/17 10:00 O2 Sat by Pulse Oximetry (%) 98 03/15/17 09:00 Findings/Remarks: pt seen/ examined feels well no complains wants to go home denies pain Constitutional: Yes: No Distress, Calm Neck: Yes: Supple Cardiovascular: Yes: Regular Rate and Rhythm Respiratory: Yes: CTA Bilaterally Gastrointestinal: Yes: Normal Bowel Sounds, Soft Extremities: Yes: Erythema (lue-- much better) Edema: No Labs: CBC, BMP 03/14/17 06:00 03/12/17 05:45 Discharge Summary Reason For Visit: TLINGIT & [facility]IDA CARDITIS Current Active Problems Erythema migrans (Lyme disease) (Acute) HTN (hypertension) (Acute) Hyperlipidemia (Acute) Lyme carditis (Acute) Mobitz (type) I (Wenckebach's) atrioventricular block (Acute) Thrombocytopenia (Acute) Hospital Course: admitted for lue- erythema concern for lyme also has bradycardia (pt has malika before this event ) treated with abx cardiology/ i/d followed stress test -ve discussed with both i/d as well as cardiology-- stable for d/c will d/c on po abx -- total 28 days f/u serology as out pt pt strongly advised to follow with his pmd in one week also f/u with cardiology as advised pt in agreement time spend in d/c planning/ documenting, coordating care and examining -- 35 min discussed with nursing staff also. Condition: Improved - Instructions Referrals: Nasir De Leon MD [Primary Care Provider] - Disposition: HOME - Home Medications Comprehensive Discharge Medication List: Ambulatory Orders Lisinopril [Prinivil] 10 mg PO DAILY 01/03/15 Simvastatin [Zocor -] 20 mg PO HS 01/03/15 Acetaminophen [Tylenol .Regular Strength -] 650 mg PO Q6H PRN #0 tablet Doxycycline Hyclate [Vibramycin -] 100 mg PO BID@1000,1800 #50 tab 03/15/17
--- NOTE | 2017-03-15 14:33 | PN ---
Progress Note, Physician Chief Complaint: Pt A&Ox3; asymptomatic. History of Present Illness: The patient is an 86 year old white male presenting with his sister, with a significant past medical history of HTN and HLD, who presents to the emergency department with left upper extremity erythema for the past 4-5 days. He states that moving his arm is uncomfortable but is able to have full range of motion. He reports that he does garden but did not notice anything on his shoulder and did not feel any bug bites. He notes that he feels as if the erythematous area has been improving. The patient denies chest pain, shortness of breath, headache and dizziness. Denies fever, chills, nausea, vomit, diarrhea and constipation. Allergies: None Past surgical history: Abdominal surgery Social history: Alcohol use. No tobacco or drug use reported PMD - Dr. Nasir De Leon - Current Medication List Current Medications: Active Medications Acetaminophen (Tylenol -) 650 mg PO Q6H PRN PRN Reason: FEVER Atorvastatin Calcium (Lipitor -) 10 mg PO HS [facility] Last Admin: 03/14/17 21:25 Dose: 10 mg Doxycycline Hyclate (Vibramycin -) 100 mg PO BID@1000,1800 [facility] Last Admin: 03/15/17 09:54 Dose: 100 mg Ceftriaxone Sodium (Rocephin 2gm Ivpb (Pre-Docked)) 100 mls @ 200 mls/hr IVPB DAILY [facility] Last Admin: 03/14/17 10:11 Dose: 200 mls/hr - Objective Vital Signs: Vital Signs Temperature 98.0 F 03/15/17 10:00 Pulse Rate 57 L 03/15/17 10:00 Respiratory Rate 16 03/15/17 10:00 Blood Pressure 123/67 03/15/17 10:00 O2 Sat by Pulse Oximetry (%) 98 03/15/17 09:00 Constitutional: Yes: No Distress Eyes: Yes: WNL HENT: Yes: WNL Neck: Yes: WNL Cardiovascular: Yes: Bradycardia, Pulse Irregular Respiratory: Yes: WNL Gastrointestinal: Yes: WNL ...Rectal Exam: Yes: Deferred Genitourinary: No: Anuria Breast(s): Yes: WNL Musculoskeletal: Yes: WNL Extremities: Yes: WNL Edema: No Peripheral Pulses WNL: Yes Integumentary: Yes: WNL Neurological: Yes: WNL ...Motor Strength: WNL Psychiatric: Yes: WNL Labs: CBC, BMP 03/14/17 06:00 03/12/17 05:45 INR, PTT INR 1.14 (0.82-1.09) 03/11/17 16:46 - ....Imaging Other: Image Reviewed (bradycardia; 2nd degree AVB (Mobitz type I)) Problem List - Problems (1) Erythema migrans (Lyme disease) Assessment/Plan: discussed case with Dr. Card. For PO antibiotics as outpatient. Code(s): A69.20 - LYME DISEASE, UNSPECIFIED (2) Lyme carditis Code(s): A69.29 - OTHER CONDITIONS ASSOCIATED WITH LYME DISEASE I51.89 - OTHER ILL-DEFINED HEART DISEASES (3) Mobitz (type) I (Wenckebach's) atrioventricular block Assessment/Plan: Stress treadmill test: reached nearly 85% of MPHR (adequate chronotropic response). From a cardiac peerspective, pt may be followed as an outpatient. He is asymptomatic; as need, further monitoring (e. g. event recorder) may be done as an outpatient, as discussed with Dr. Palomino. Code(s): I44.1 - ATRIOVENTRICULAR BLOCK, SECOND DEGREE (4) HTN (hypertension) Assessment/Plan: on lisinopril. ECHO: normal LVEF; mildly dilated LA. Code(s): I10 - ESSENTIAL (PRIMARY) HYPERTENSION (5) Hyperlipidemia Assessment/Plan: on statin; f/u lipids; mildly elevated AST. Code(s): E78.5 - HYPERLIPIDEMIA, UNSPECIFIED
--- NOTE | 2017-03-20 11:22 | EKG ---
Test Reason : Blood Pressure : / mmHG Vent. Rate : 042 BPM Atrial Rate : 042 BPM P-R Int : 344 ms QRS Dur : 086 ms QT Int : 482 ms P-R-T Axes : 032 000 016 degrees QTc Int : 402 ms MARKED SINUS BRADYCARDIA WITH MOBITZ I (WENCKEBACH) BLOCK ABNORMAL ECG WHEN COMPARED WITH ECG OF 11-MAR-2017 16:05, NO SIGNIFICANT CHANGE WAS FOUND Confirmed by RENETTA MATT, MAYANK ([id number]) on 03/20/2017 11:22:18 AM Referred By: Confirmed By:MAYANK JACKSON MD
== END 2017-03-15 14:43 | disposition home or self-care (01) | DRG 869 ==
LOC: JER 14:02 → JERBED 17:10 → J4W 22:53
PROVIDERS: ADMIT Internal Medicine; ATTEND Internal Medicine
DX: A69.20 Lyme disease, unspecified (principal); I51.89 Other ill-defined heart diseases; I10 Essential (primary) hypertension; E78.5 Hyperlipidemia, unspecified; I44.1 Atrioventricular block, second degree; R00.1 Bradycardia, unspecified; D69.6 Thrombocytopenia, unspecified; A69.29 Other conditions associated with Lyme disease
CPT/HCPCS: 36415; 71010-TC; 80053; 82550; 82553; 82930; 83036; 83605; 84443; 84484; 85025; 85027; 85610; 85651; 85730; 86140; 86666; 86850; 86900; 86901; 87040; 87207; 87798; 93005; 93010; 93017; 93018; 93306-TC; 99283-25